=== PATIENT | female | born 2000 | race Caucasian/White ===

== ENCOUNTER 2022-01-21 23:42 | Emergency (ER) | payer BC, SELFPAY ==
--- NOTE | ~2022-01-21 | CT_ITS ---
EXAMINATION: CT abdomen pelvis w con DATE: 01/22/2022 03:46 INDICATION: Right lower quadrant pain TECHNIQUE: Computed tomography (CT) of the abdomen and pelvis was performed with 100 cc Omnipaque 350 intravenous contrast. The dose-length product was 681.72 mGy-cm. Automated exposure control and iter ative reconstruction technique were employed. COMPARISON: None. FINDINGS: Lung bases are unremarkable. Heart size normal. No significant pleural or pericardial effus ion. No significant vascular abnormality. No lymphadenopathy. The liver, spleen, pancreas, adrenal glands and right kidney are unremarkable. There is a small subce ntimeter left renal cyst. Gallbladder is contracted. No free air or free fluid. Nonobstructive bowel pattern. No abnormal pelvic masses or fluid collections. Normal appendix. No evidence for diverticuli tis. No significant bone or joint abnormality. IMPRESSION: 1. No acute abdominal abnormality. 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
[2022-01-21 23:45] VITALS: BP 147/87; PULSE 89; RESP 16; TEMP 37; O2SAT 100
[2022-01-22 01:31] LABS: Appearance Urine Slightly Cloudy (Clear); Bilirubin Urine Negative (Negative); Blood Urine Negative (Negative); Color Urine Yellow (Yellow); Glucose Urine UA Negative (Negative); Ketones Urine Trace mg/dL (Negative); Leukocyte Esterase Ur Trace LEU/UL (Negative); Nitrate Urine Negative (Negative); Protein Urine Negative (Negative); Urobilinogen Urine 0.2 mg/dL (<2.0)
[2022-01-22 01:42] LABS: RBC Urine 0-2 /hpf (0-2); Squamous Epithelial Cell Urine Few /hpf (Few)
[2022-01-22 01:49] LABS: Add Urine Microscopic? YES
[2022-01-22 03:01] LABS: Basophils Percent Auto 0.3 % (0.2-1.2); Eosinophils Absolute Auto 0.1 K/mm3 (0-0.3); Eosinophils Percent Auto 1.1 % (0-4.4); Hematocrit 39.7 % (37.0-47.0); Hemoglobin 13.8 g/dL (12.0-15.0); Immature Granulocyte Absolute 0.05 K/mm3 (0.00-0.031); Immature Granulocyte Percent A 0.4 % (0-0.5); Lymphocytes Absolute Auto 3.07 K/mm3 (0.9-3.2); Lymphocytes Percent Auto 26.2 % (18.3-44.2); Mean Corpuscular HGB Conc 34.8 g/dl (32-36); Mean Corpuscular Hemoglobin 30.6 pg (26-34); Mean Platelet Volume 10.5 fl (7.4-10.4); Monocytes Absolute Auto 0.7 K/mm3 (0.1-0.6); Monocytes Percent Auto 5.6 % (2.6-8.5); Neutrophils Absolute Auto 7.8 K/mm3 (1.3-6.7); Neutrophils Percent Auto 66.4 % (45.5-73.1); Platelet Count Result 312 k/mm3 (150-375); Red Blood Count 4.51 M/mm3 (4.2-5.4); Red Cell Distribution Width 12.4 % (11.5-14.5); White Blood Count 11.7 K/mm3 (4.5-10.0)
--- NOTE | 2022-01-22 03:03 | ED.GENADULT ---
HPI - General Adult General Chief complaint: Abdominal Pain Stated complaint: right side pain today Time Seen by Provider: 01/22/22 02:09 History of Present Illness HPI narrative: Patient is a 21-year-old female who presents to the emergency department with chief complaint of abdominal pain. Patient reports that she started having pain in the right flank that radiates to the right side of her abdomen. Patient reports has had some nausea denies fever denies dysuria. Patient reports that she is unable to get comfortable in any position reports that the pain is worse with palpation on her abdomen. Patient denies fever Related Data Allergies Allergy/AdvReac Type Severity Reaction Status Date / Time No Known Allergies Allergy Verified 01/21/22 23:48 Review of Systems Review of Systems: A 10 system review of systems was completed on the patient and is negative except for what is stated in the HPI. Nursing and ancillary documentation was reviewed. Exam Narrative: GENERAL: Well-appearing, well-nourished, and in no acute distress. HEAD: Normocephalic, atraumatic. EYES: PERRLA and EOMI. ENT: Nares clear, no rhinorrhea or epistaxis. Mucous membranes moist. NECK: Supple. CHEST: Clear to auscultation. No respiratory distress. HEART: Regular rate and rhythm. No murmur heard. Normal peripheral pulses. ABDOMEN: Soft, tenderness to palpation in the right lower quadrant, nondistended, normal active bowel sounds. EXTREMITIES: Normal range of motion. No edema. SKIN: Warm, dry, no rash. NEURO: No focal deficits. Alert and oriented x3. PSYCH: Normal mood and affect. Course Course Emergency Course: Urinalysis showed evidence of 4-6 WBCs in the urine with trace leukocyte esterase. Patient's white blood cell count is slightly elevated 11.7 electrolytes and liver enzymes are within normal limits CT scan of the abdomen pelvis showed no evidence of acute abnormalities. The patient will be started on oral antibiotics for a UTI Vital Signs Vital signs: Vital Signs Temperature 37.0 C 01/21/22 23:45 Pulse Rate 89 01/21/22 23:45 Respiratory Rate 16 01/21/22 23:45 Blood Pressure 147/87 H 01/21/22 23:45 Pulse Oximetry 100 01/21/22 23:45 Oxygen Delivery Room Air 01/21/22 23:45 Temperature 37.0 C 01/21/22 23:45 Pulse Rate 89 01/21/22 23:45 Respiratory Rate 16 01/21/22 23:45 Blood Pressure 147/87 H 01/21/22 23:45 Pulse Oximetry 100 01/21/22 23:45 Oxygen Delivery Room Air 01/21/22 23:45 Medical Decision Making Vital Signs Vital Signs: Vital Signs Temperature 37.0 C 01/21/22 23:45 Pulse Rate 89 01/21/22 23:45 Respiratory Rate 16 01/21/22 23:45 Blood Pressure 147/87 H 01/21/22 23:45 Pulse Oximetry 100 01/21/22 23:45 Oxygen Delivery Room Air 01/21/22 23:45 Temperature 37.0 C 01/21/22 23:45 Pulse Rate 89 01/21/22 23:45 Respiratory Rate 16 01/21/22 23:45 Blood Pressure 147/87 H 01/21/22 23:45 Pulse Oximetry 100 01/21/22 23:45 Oxygen Delivery Room Air 01/21/22 23:45 Lab Data 01/22/22 02:56 01/22/22 02:56 Labs: Lab Results 01/22/22 01/22/22 01/22/22 Range/Units 01:24 02:56 02:56 WBC 11.7 H (4.5-10.0) K/mm3 RBC 4.51 (4.2-5.4) M/mm3 Hgb 13.8 (12.0-15.0) g/dL Hct 39.7 (37.0-47.0) % MCV 88.0 (80-100) fl MCH 30.6 (26-34) pg MCHC 34.8 (32-36) g/dl RDW 12.4 (11.5-14.5) % Plt Count 312 (150-375) k/mm3 MPV 10.5 H (7.4-10.4) fl Immature Gran % (Auto) 0.4 (0-0.5) % Neut % (Auto) 66.4 (45.5-73.1) % Lymph % (Auto) 26.2 (18.3-44.2) % Crosby % (Auto) 5.6 (2.6-8.5) % Eos % (Auto) 1.1 (0-4.4) % Baso % (Auto) 0.3 (0.2-1.2) % Lymph # (Auto) 3.07 (0.9-3.2) K/mm3 Crosby # (Auto) 0.7 H (0.1-0.6) K/mm3 Eos # (Auto) 0.1 (0-0.3) K/mm3 Baso # (Auto) 0.0 (0.0-0.1) K/mm3 Abs Immat Gran (auto) 0.05 H (0.00-0.031) K/mm3 Absolute Neuts (aut
[2022-01-22] MEDS: SODIUM CHLORIDE 0.9% IV 1,000 ML 999 ML IV CONT (03:06)
[2022-01-22] MEDS: ONDANSETRON INJ 4 MG/2 ML VIAL IV PUSH (03:07)
[2022-01-22 03:11] LABS: Alanine Aminotransferase 19 U/L (6-35); Albumin Level 4.7 g/dL (3.7-5.6); Alkaline Phosphatase 71 U/L (45-116); Anion Gap 11 mmol/L (8-16); Aspartate Amino Transferase 26 U/L (14-36); Bilirubin,Total 0.3 mg/dL (0.2-1.3); Blood Urea Nitrogen 18 mg/dL (8-21); Calcium 9.4 mg/dL (8.9-10.7); Carbon Dioxide 27 mmol/L (22-30); Chloride 102 mmol/L (98-107); Estimated CRCL calculation 97 ml/min; Estimated Glomerular Filt Rate > 60; Glucose 97 mg/dL (65-110); Lipase 56 U/L (23-300); Potassium 4.4 mmol/L (3.4-5.0); Sodium 140 mmol/L (134-143)
== END 2022-01-22 05:53 | disposition home or self-care (01) ==
PROVIDERS: Emergency Provider Emergency Medicine
DX: N39.0 Urinary tract infection, site not specified (principal); R10.84 Generalized abdominal pain
CPT/HCPCS: 36415; 74177; 80053; 81001; 81025; 83690; 85025; 96361; 96374; 99284; J2405; J7030; Q9967

== ENCOUNTER 2022-05-30 18:57 | Emergency (ER) | payer OTHER, SELFPAY ==
--- NOTE | ~2022-05-30 | XR_ITS ---
EXAMINATION: XR ankle LT min 3V DATE: 05/30/2022 19:23 INDICATION: Left ankle pain TECHNIQUE: Anteroposterior, lateral, mortise, and additional oblique view of the ankle were obtained. COMPARISON: None. FINDINGS: Bone alignment is normal. There is soft tissue swelling of ankle. There is heterotopic ossi fication of the foot near the navicular on the lateral view. IMPRESSION: 1. Possible avulsion injury of the dorsal base of the navicular. Reviewed, dictated and finalized at location F.
--- NOTE | 2022-05-30 19:18 | ED.LOWEXIN ---
HPI - Extremity Injury (Lower) General Chief Complaint: Extremity Injury, Lower Stated Complaint: Lt Ankle Pain Time Seen by Provider: 05/30/22 19:18 Source: patient Mode of arrival: wheelchair Limitations: no limitations History of Present Illness HPI Narrative: A 21-year-old female presents with complaint of pain and swelling to left ankle. Patient reports that she fell down 4 steps approximately 45 minutes prior to arrival. Was taking out her dog , holding in her arms, and unsure how she tripped. reports that she is unable to bear weight. range of motion decreased due to pain. Distal neurovascularly intact. All systems reviewed and negative except as noted above. Related Data Allergies Allergy/AdvReac Type Severity Reaction Status Date / Time No Known Allergies Allergy Verified 05/30/22 19:25 Review of Systems Review of Systems: CONSTITUTIONAL: Denies fever, chills, or sweats. EYES: Denies visual changes, redness, or discharge. ENT: Denies rhinorrhea, congestion, sore throat, or otalgia. CARDIOVASCULAR: Denies chest pain, palpitations, or edema. RESPIRATORY: Denies cough or dyspnea. GASTROINTESTINAL: Denies abdominal pain, nausea, vomiting, or diarrhea. GENITOURINARY: Denies dysuria or hematuria. SKIN: Denies rash or itching. MUSCULOSKELETAL: Reports pain and swelling to left ankle. NEUROLOGIC: Denies headache, numbness, or weakness. PSYCHIATRIC: Denies anxiety or depression. All other systems reviewed are negative, except as documented in HPI. PMFSH Comments At time of signature, agree with nursing past medical, surgical, social and family history. There is no relevant family history pertinent to the presenting complaint. Exam Narrative: GENERAL: This is a well-nourished, well-developed patient, in no apparent distress. HEAD: normocephalic, atraumatic. EYES: PERRL. Sclera clear/white. Vision is grossly intact. EARS: External ears normal NOSE: External nose normal NECK: Neck supple, non-tender without lymphadenopathy, masses or thyromegaly. CARDIOVASCULAR: Regular rate and rhythm without murmurs, gallops, or rubs. RESPIRATORY: Clear to auscultation. Breath sounds equal bilaterally. No wheezes, rales, or rhonchi. SKIN: warm, Dry, intact with no suspicious lesions or rash, good texture and turgor. NEURO: awake, alert, and oriented to person, place and time. There were no obvious focal neurologic abnormalities. EXTREMITIES: Tenderness on palpation to anterior and lateral aspect of left ankle. Moderate swelling noted. No instability noted Or deformity noted. Course Course Level of Care: Express Care Visit Vital Signs Vital signs: Vital Signs Oxygen Delivery Room Air 05/30/22 19:15 Temperature 36.7 C 05/30/22 19:24 Pulse Rate 104 H 05/30/22 19:24 Respiratory Rate 16 05/30/22 19:24 Blood Pressure 133/91 H 05/30/22 19:24 Pulse Oximetry 98 05/30/22 19:24 Oxygen Delivery Room Air 05/30/22 19:24 Reviewed MDM - Extremity Injury (Lower) MDM Narrative Medical decision making narrative: Patient is aware of diagnosis, understands and agrees to treatment plan. Anticipatory guidance given. Patient agrees to follow-up as directed and is aware of reasons to seek care at the emergency department. Portions of this record may have been created with voice recognition software Short-leg OCL placed to left leg by monse Hall tech. distal NV intact pre and post procedure. Patient instructed to follow-up with coding specialist in the next 3-5 days. Imaging Data My impression: agree with radiologist Radiologist's impression: EXAMINATION: XR ankle LT min 3V DATE: 05/30/2022 19:23 INDICATION: Left ankle pain TECHNIQUE: Anteroposterior, lateral, mortise, and additional oblique view of the ankle were obtained. COMPARISON: None. FINDINGS: Bone alignment is normal. There is soft tissue swelling of ankle. There is heterotopic ossification of the foot near th
[2022-05-30 19:24] VITALS: BP 133/91; PULSE 104; RESP 16; TEMP 36.7; O2SAT 98
== END 2022-05-30 20:10 | disposition home or self-care (01) ==
PROVIDERS: Emergency Provider Nurse Practitioner Family
DX: S92.252A Displaced fracture of navicular [scaphoid] of left foot, initial encounter for closed fracture (principal); W10.9XXA Fall (on) (from) unspecified stairs and steps, initial encounter
CPT/HCPCS: 29515; 73610; 99214; G0463

== ENCOUNTER 2022-08-06 19:42 | Emergency (ER) | payer OTHER, SELFPAY ==
[2022-08-06 19:44] VITALS: BP 156/95; PULSE 89; RESP 16; TEMP 37; O2SAT 100
--- NOTE | 2022-08-06 19:53 | ECG_ITS ---
Measurements Intervals [place] Rate: 98 P: 46 MD: 152 QRS: 20 QRSD: 91 T: 39 QT: 350 QTc: 448 Interpretive Statements SINUS RHYTHM MINIMAL ST DEPRESSION [0.025+ mV ST DEPRESSION] NO PREVIOUS ECG AVAILABLE FOR COMPARISON Electronically Signed On 08-07-2022 14:11:57 CDT by Ulices Carpenter M.D.
--- NOTE | 2022-08-06 20:35 | ED.DIZZY ---
HPI - Dizziness General Chief Complaint: Dizziness Stated Complaint: dizzy Time Seen by Provider: 08/06/22 20:06 History of Present Illness HPI Narrative: Patient is a 22-year-old female presenting with lightheadedness. Patient states that she missed her period last month. States that she took multiple tests over the last several weeks all of which have been negative. Earlier today, she started having vaginal bleeding. States that it is much heavier than normal. States that she has passed numerous clots. She had an episode of lightheadedness while at work and felt like she was about to pass out so she came down for evaluation. Currently, she states that she is no longer bleeding. States that she had cramping earlier which has improved. She denies fevers or chills, numbness or weakness, chest pain, shortness of breath, cough, nausea or vomiting, dysuria, diarrhea, leg swelling. Related Data Allergies Allergy/AdvReac Type Severity Reaction Status Date / Time No Known Allergies Allergy Verified 08/06/22 19:52 Review of Systems Review of Systems: All systems reviewed & are unremarkable except as noted in HPI and below PMFSH Family History Family History Unknown Cancer Heart disease Social History Social History Smoking status: Never smoker Alcohol intake: never Substance use: never Lack of Transportation: No Lack of Food: Never True Current Housing: I Have Housing Concerned About Future Housing: No Difficulty Paying Gas/Electric Bills: No Difficulty Paying for Meds: No Currently Unemployed: No Education: High School Diploma/GED Difficulty w/ Childcare or Family Care: No Exam Narrative: GENERAL: Well-appearing, well-nourished, and in no acute distress. HEAD: Normocephalic, atraumatic. EYES: PERRLA and EOMI. ENT: Nares clear, no rhinorrhea or epistaxis. Mucous membranes moist. NECK: Supple. CHEST: Clear to auscultation. No respiratory distress. HEART: Regular rate and rhythm ABDOMEN: Soft, nontender, nondistended EXTREMITIES: Normal range of motion. No edema. SKIN: Warm, dry, no rash. NEURO: No focal deficits. Alert and oriented x3. PSYCH: Normal mood and affect. Course Vital Signs Vital signs: Vital Signs Temperature 98.6 F 08/06/22 19:44 Pulse Rate 89 08/06/22 19:44 Respiratory Rate 16 08/06/22 19:44 Blood Pressure 156/95 H 08/06/22 19:44 Pulse Oximetry 100 08/06/22 19:44 Oxygen Delivery Room Air 08/06/22 19:44 Temperature 98.6 F 08/06/22 19:44 Pulse Rate 98 08/06/22 22:00 Respiratory Rate 19 08/06/22 22:00 Blood Pressure 140/60 08/06/22 22:00 Pulse Oximetry 100 08/06/22 22:00 Oxygen Delivery Room Air 08/06/22 19:44 MDM - Dizziness MDM Narrative Medical decision making narrative: Patient is a 22-year-old female presenting with lightheadedness in the setting of heavy vaginal bleeding x1 day. Vitals within normal limits. Patient is well-appearing and in no acute distress. Exam is remarkable for the above. Plan for basic labs, beta hCG, orthostatic vital signs. Beta-hCG is undetectable. Blood work is unremarkable. Hemoglobin is stable at 13.8. UA is not indicative of infection. On reevaluation, the patient is resting comfortably. Her orthostatic vital signs are normal. Discussed the reassuring work-up. Advised that she follow-up with her PCP as well as FASHION INTERN. Appropriate return precautions given. Patient voiced understanding and is agreeable with plan. Discharged in stable condition. Differential Diagnosis Differential diagnosis: Likely other (lightheadedness, vaginal bleeding, UTI) Medical Records Attestation: I reviewed the patient's medical records. Lab Data Attestation: I reviewed the patient's lab results. 08/06/22 20:42 08/06/22 20:42 Labs: Lab Results
[2022-08-06 20:55] VITALS: BP 170/86; PULSE 87
[2022-08-06 20:57] VITALS: BP 157/91; PULSE 84
[2022-08-06 20:58] VITALS: BP 170/86; PULSE 97; RESP 28; O2SAT 100
[2022-08-06 20:58] LABS: Basophils Absolute Auto 0.1 K/mm3 (0.0-0.1); Basophils Percent Auto 0.5 % (0.2-1.2); Eosinophils Absolute Auto 0.1 K/mm3 (0-0.3); Eosinophils Percent Auto 1.1 % (0-4.4); Hematocrit 42.1 % (37.0-47.0); Hemoglobin 13.8 g/dL (12.0-15.0); Immature Granulocyte Absolute 0.04 K/mm3 (0.00-0.031); Immature Granulocyte Percent A 0.3 % (0-0.5); Lymphocytes Absolute Auto 4.07 K/mm3 (0.9-3.2); Lymphocytes Percent Auto 31.6 % (18.3-44.2); Mean Corpuscular HGB Conc 32.8 g/dl (32-36); Mean Corpuscular Hemoglobin 29.9 pg (26-34); Mean Corpuscular Volume 91.1 fl (80-100); Mean Platelet Volume 11.1 fl (7.4-10.4); Monocytes Absolute Auto 0.9 K/mm3 (0.1-0.6); Monocytes Percent Auto 6.9 % (2.6-8.5); Neutrophils Absolute Auto 7.7 K/mm3 (1.3-6.7); Neutrophils Percent Auto 59.6 % (45.5-73.1); Platelet Count Result 316 k/mm3 (150-375); Red Blood Count 4.62 M/mm3 (4.2-5.4); Red Cell Distribution Width 12.6 % (11.5-14.5); White Blood Count 12.9 K/mm3 (4.5-10.0)
[2022-08-06 20:59] VITALS: BP 159/93; PULSE 93
[2022-08-06 21:11] LABS: Anion Gap 12 mmol/L (8-16); Blood Urea Nitrogen 14 mg/dL (7-17); Calcium 9.1 mg/dL (8.4-10.2); Carbon Dioxide 24 mmol/L (22-30); Chloride 104 mmol/L (98-107); Estimated CRCL calculation 145 ml/min; Estimated Glomerular Filt Rate > 60; Glucose 89 mg/dL (65-110); Potassium 3.4 mmol/L (3.4-5.0); Sodium 140 mmol/L (137-145)
[2022-08-06 21:28] LABS: Beta HCG Quantitative < 2.39 mIU/ML
[2022-08-06 21:34] LABS: Add Urine Microscopic? YES; Appearance Urine Clear (Clear); Bacteria Urine None Seen /hpf; Bilirubin Urine Negative (Negative); Blood Urine 1+ (Negative); Color Urine Yellow (Yellow); Glucose Urine UA Negative (Negative); Ketones Urine Negative (Negative); Leukocyte Esterase Ur Negative LEU/UL (Negative); Need Manual Microscopic Reviewed; Nitrate Urine Negative (Negative); Non Pathogenic Casts 0-2; Protein Urine Negative (Negative); RBC Urine 0-2 /hpf (0-2); Specific Grav Ur 1.003 (1.001-1.035); Squamous Epithelial Cell Urine None seen /hpf (Few); Urobilinogen Urine 0.2 mg/dL (<2.0); WBC Urine 0-5 /hpf; pH Urine 6.5 (5.0-9.0)
[2022-08-06 22:00] VITALS: BP 140/60; PULSE 98; RESP 19; O2SAT 100
== END 2022-08-06 22:00 | disposition home or self-care (01) ==
PROVIDERS: Emergency Provider Emergency Medicine
DX: R42 Dizziness and giddiness (principal); N93.9 Abnormal uterine and vaginal bleeding, unspecified
CPT/HCPCS: 36415; 80048; 81001; 81025; 84702; 85025; 93005; 99283